=== PATIENT | female | born 1975 | race African-American/Black ===

== ENCOUNTER 2023-01-02 20:30 | Emergency (ER) | payer BC ==
[2023-01-02 20:39] VITALS: BP 129/78; PULSE 86; RESP 19; TEMP 98.7; BMI 32.5
== END 2023-01-02 22:21 | disposition home or self-care (01) ==
LOC: JERFT 20:30
DX: R09.81 Nasal congestion (principal); R05.9 Cough, unspecified; J31.0 Chronic rhinitis; H10.9 Unspecified conjunctivitis; Z20.822 Contact with and (suspected) exposure to COVID-19
CPT/HCPCS: 87635; 87651; 99283-25